=== PATIENT | female | born 1950 | race Caucasian/White ===

== ENCOUNTER 2016-08-18 11:36 | Day surgery (SDC) | payer BC, OTHER ==
[~2016-08-18] VITALS: Ht 157.5 cm; Wt 112.4 kg
[~2016-08-18 11:36] MED LIST: ADVAIR 250/501 DISK IH; CARTIA XT120 MG PO; COUMADIN3 MG PO; COZAAR50 MG PO; CYANOCOBALAM1000 MCG PO; LASIX20 MG PO; LEXAPRO20 MG PO; LO-DOSE ASPIRIN81 M2 PO; LOVENOX100 MG/1 M SC; LYRICA100 MG PO; OMEPRAZOLE40 M1 PO; PERCOCET 7.51 TABLET PO; PROAIR HFA8.5 GM IH; STOOL SOFTENER100 M1 PO; SYNTHROID125 MCG PO; VITAMIN D31000 UNI2 PO; WELLBUTRIN SR150 MG PO; XYZAL5 MG PO
[2016-08-18 12:28] LABS: INTER. NORMALIZED RATIO 1.3; PROTHROMBIN TIME 12.9 (9.2-11.2); PTT 32.7 (25-32)
[2016-08-18 12:30] VITALS: BP 136/82
[2016-08-18 18:38] VITALS: BP 155/79
[2016-08-18] MEDS ORDERED: ULTRAM50 MG PO (19:44)
[2016-08-18 20:40] VITALS: BP 140/60
[2016-08-18 21:33] VITALS: BP 140/75
== END 2016-08-18 21:53 | disposition home or self-care (01) ==
LOC: SDC 11:36
PROVIDERS: Surgery
PROC: 06LY3CC Occlusion of Hemorrhoidal Plexus with Extraluminal Device, Percutaneous Approach (ICD-10-PCS; principal; 2016-08-18)
DX: K64.8 Other hemorrhoids (principal); I10 Essential (primary) hypertension; I25.10 Atherosclerotic heart disease of native coronary artery without angina pectoris; K21.9 Gastro-esophageal reflux disease without esophagitis; E03.9 Hypothyroidism, unspecified; J44.9 Chronic obstructive pulmonary disease, unspecified; M19.90 Unspecified osteoarthritis, unspecified site; Z95.2 Presence of prosthetic heart valve; Z85.118 Personal history of other malignant neoplasm of bronchus and lung
CPT/HCPCS: 85610; 85730; 94640; J2405; J3010; S0020